=== PATIENT | female | born 1990 ===

== ENCOUNTER 2021-05-07 05:47 | Inpatient (IN) ==
[2021-05-07] MEDS ORDERED: FAMOTIDINE 20 MG/2 ML VIAL IV ONE (05:55)
[2021-05-07] MEDS ORDERED: ceFAZolin 3,000 MG in SYRINGE 1 EACH IV ONE (05:55)
[2021-05-07] MEDS ORDERED: CITRIC ACID/SODIUM CITRATE 30 ML UDCUP PO ONE (05:55)
[2021-05-07] MEDS: LACTATED RINGERS 1,000 ML IV SCH ×2 (06:14→23:04)
[2021-05-07 06:39] LABS: Basophils % 0.2 % (0.0-0.8); Eosinophils # 0.1 10*3/uL (0.0-0.87); Eosinophils % 1.2 % (0.00-10.9); Hematocrit 36.9 VOL% (35.7-47.0); Hemoglobin 11.9 GM/DL (12.0-16.0); Immature Granulocytes % 0.7 %; Immature Granulocytes Absolute 0.08 #; Lymphocytes # 3.1 10*3/uL (1.4-4.0); Lymphocytes % 27.5 % (21.3-54.2); Mean Corpuscular HGB Conc 32.2 GM/DL (32-36); Mean Corpuscular Volume 88.3 FL (87-102); Mean Platelet Volume 8.5 FL (9.6-12.0); Monocytes % 7.9 % (1.7-12.7); Neutrophils % 62.5 % (38.7-73.9); Platelet Count 331 T/CUMM (130-400); Red Blood Count 4.18 MC/CUMM (3.8-5.5); Red Cell Distribution Width 15.3 % (9.3-17.3); White Blood Count 11.1 T/CUMM (4-12)
[2021-05-07 07:03] LABS: Albumin 2.6 G/DL (3.4-5.0); Bilirubin,Total 0.4 MG/DL (0.20-1.00); Calcium 8.1 MG/DL (8.5-10.1); Osmolality,Calculated 274.5 MOS/KG (273-304); Total Protein 6.4 G/DL (6.4-8.2)
[2021-05-07] MEDS ORDERED: OXYTOCIN 10 UNIT/ML VIAL IM ONE (07:27)
[2021-05-07] MEDS ORDERED: OXYTOCIN/LR 30 UNIT/1,000 ML BAG IV ONE (07:27)
[2021-05-07] MEDS ORDERED: METHYLERGONOVINE 0.2 MG/1 ML AMP ONE (09:13)
[2021-05-07] MEDS ORDERED: miSOPROStoL 200 MCG TABLET ONE (09:13)
[2021-05-07] MEDS ORDERED: CARBOPROST TROMETHAMINE 250 MCG/ML AMP IM ONE (09:13)
[2021-05-07] MEDS ORDERED: ONDANSETRON 4 MG/2 ML VIAL ONE (10:05)
[2021-05-07] MEDS ORDERED: BUPIVACAINE SPINAL 0.75% 2 ML AMP SPINAL ONE (10:05)
[2021-05-07] MEDS ORDERED: KETOROLAC 30 MG/1 ML VIAL ONE (10:31)
[2021-05-07] MEDS ORDERED: DEXAMETHASONE 4 MG/1 ML VIAL ONE (10:31)
[2021-05-07] MEDS ORDERED: ACETAMINOPHEN INJ 1,000 MG/100 ML VIAL IV ONE (10:31)
[2021-05-07] MEDS ORDERED: LACTATED RINGERS 1,000 ML IV ONE (10:34)
[2021-05-07] MEDS ORDERED: PHENYLEPHRINE 1 MG/10 ML SYRINGE IV ONE (10:46)
[2021-05-07 11:01] LABS: Cord Venous Blood HCO3 23.3 MMOL/L; Cord Venous Blood PCO2 46.7 MMHG; Cord Venous Blood PO2 22.9 MMHG
[2021-05-07 11:03] LABS: Cord Arterial Blood HCO3 25.5 MMOL/L
[2021-05-07] MEDS ORDERED: RHO(D) IMMUNE GLOBULIN 300 MCG SYRINGE IM ONE (11:29)
[2021-05-07] MEDS ORDERED: OXYTOCIN/LR 20 UNIT/1,000 ML BAG IV ONE (11:29)
[2021-05-07] MEDS ORDERED: ACETAMINOPHEN 325 MG TABLET PO PRN (11:29)
[2021-05-07] MEDS ORDERED: ONDANSETRON 4 MG/2 ML VIAL IV PRN (11:29)
[2021-05-07] MEDS ORDERED: IBUPROFEN 800 MG TABLET PO PRN (11:29)
[2021-05-07] MEDS ORDERED: LACTATED RINGERS 1,000 ML IV SCH (11:30)
[2021-05-07 15:22] LABS: Bilirubin,Urine Negative (Negative); Blood, Urine Negative (Negative); Glucose,Urine (UA) Negative (Negative); Ketones,Urine Negative (Negative); Mucus,Urine Occasional /LPF (Occasional); Nitrite,Urine Negative (Negative); Protein,Urine Negative; RBC,Urine 1 /HPF (0-4); Squamous Epithelial Cell,Urine Occasional /HPF (0-10); Urine Appearance CLEAR (Clear); Urine Color Straw (Yellow); Urine Specific Gravity 1.016 (1.001-1.035); Urine Urobilinogen < 2.0 EU/DL (0.2-1.0)
[2021-05-07] MEDS: KETOROLAC 30 MG/1 ML VIAL IV SCH ×2 (17:54→22:57)
[2021-05-07] MEDS: ACETAMINOPHEN 500 MG TABLET PO SCH ×2 (18:15→22:58)
[2021-05-07 19:50] LABS: Basophils % 0.1 % (0.0-0.8); Hematocrit 33.2 VOL% (35.7-47.0); Hemoglobin 10.6 GM/DL (12.0-16.0); Immature Granulocytes % 0.6 %; Immature Granulocytes Absolute 0.13 #; Lymphocytes # 2.3 10*3/uL (1.4-4.0); Lymphocytes % 11.2 % (21.3-54.2); Mean Corpuscular HGB Conc 31.9 GM/DL (32-36); Mean Corpuscular Volume 88.3 FL (87-102); Mean Platelet Volume 8.9 FL (9.6-12.0); Monocytes % 5.2 % (1.7-12.7); Neutrophils % 82.9 % (38.7-73.9); Platelet Count 320 T/CUMM (130-400); Red Blood Count 3.76 MC/CUMM (3.8-5.5); Red Cell Distribution Width 15.3 % (9.3-17.3); White Blood Count 20.4 T/CUMM (4-12)
[2021-05-07 21:12] LABS: Atypical Lymphocytes Few; Band Neutrophils 2 % (0-10); Lymphocytes 14 % (20-55); Platelet Estimate Adequate; Segmented Neutrophils 79 % (50-85); Total Cells Counted 100
[2021-05-07] MEDS: DOCUSATE SODIUM 100 MG CAPSULE PO SCH (23:20)
[2021-05-08] MEDS: KETOROLAC 30 MG/1 ML VIAL IV SCH (05:33)
[2021-05-08] MEDS: ACETAMINOPHEN 500 MG TABLET PO SCH (05:35)
[2021-05-08 06:28] LABS: Basophils % 0.2 % (0.0-0.8); Eosinophils # 0.1 10*3/uL (0.0-0.87); Eosinophils % 0.4 % (0.00-10.9); Hematocrit 31.7 VOL% (35.7-47.0); Hemoglobin 10.2 GM/DL (12.0-16.0); Immature Granulocytes % 0.6 %; Immature Granulocytes Absolute 0.09 #; Lymphocytes # 4.1 10*3/uL (1.4-4.0); Lymphocytes % 25.6 % (21.3-54.2); Mean Corpuscular HGB Conc 32.2 GM/DL (32-36); Mean Corpuscular Volume 88.8 FL (87-102); Mean Platelet Volume 8.6 FL (9.6-12.0); Monocytes % 8.1 % (1.7-12.7); Neutrophils % 65.1 % (38.7-73.9); Platelet Count 289 T/CUMM (130-400); Red Blood Count 3.57 MC/CUMM (3.8-5.5); Red Cell Distribution Width 15.4 % (9.3-17.3); White Blood Count 15.8 T/CUMM (4-12)
[2021-05-08] MEDS: MULTIVITAMIN (PRENATAL) TABLET PO SCH (08:11)
[2021-05-08] MEDS: MAGNESIUM HYDROXIDE SUSP 30 ML UDCUP PO PRN ×2 (08:11→21:44)
[2021-05-08] MEDS: SIMETHICONE CHEW 80 MG TABLET PO PRN ×2 (08:11→21:44)
[2021-05-08] MEDS: DOCUSATE SODIUM 100 MG CAPSULE PO SCH ×2 (08:11→21:44)
[2021-05-08] MEDS: METOCLOPRAMIDE 10 MG TABLET PO SCH ×2 (08:11→15:58)
[2021-05-08] MEDS: NEOMYCIN/POLYMYXIN/BACITRACIN OINT 0.9 GM PACK TOP SCH (18:02)
[2021-05-08] MEDS ORDERED: NEOMYCIN/POLYMYXIN/BACITRACIN OINT 0.9 GM PACK TOP SCH (21:00)
[2021-05-09] MEDS: METOCLOPRAMIDE 10 MG TABLET PO SCH ×2 (00:29→13:29)
[2021-05-09] MEDS: NEOMYCIN/POLYMYXIN/BACITRACIN OINT 0.9 GM PACK TOP SCH (13:28)
[2021-05-09] MEDS: DOCUSATE SODIUM 100 MG CAPSULE PO SCH (13:29)
[2021-05-09] MEDS: MULTIVITAMIN (PRENATAL) TABLET PO SCH (13:30)
[2021-05-09 14:41] VITALS: BP 114/60
== END 2021-05-09 16:05 | disposition designated cancer center or children's hospital (05) | DRG 540 ==
LOC: N.LD 05:47 → N.OB 14:51
PROVIDERS: ADMIT Obstetrics & Gynecology; ATTEND Obstetrics & Gynecology
PROC: LDCSECT (ICD-10-PCS; 2021-05-07 10:30)